=== PATIENT | male | born 2000 | race Caucasian/White ===

== ENCOUNTER 2024-04-20 10:22 | Outpatient (REF) | payer OTHER, SELFPAY ==
--- NOTE | ~2024-04-20 | US_ITS ---
EXAMINATION: US THYROID CLINICAL INFORMATION: Left perithyroid nodule. COMPARISON: None available. TECHNIQUE: Linear transducer grayscale and color Doppler examination with attention to the region of the thyroid. FINDINGS: SIZE: Measurements of the thyroid lobes and nodules are given in sagittal, anteroposterior and transverse dimensions respectively. Right Thyroid Lobe: 5.0 x 1.1 x 1.6 cm, volume 4.6 mL. Parenchyma: The gland echotexture is homogeneous. Thyroid vascularity is normal. Left Thyroid Lobe: 3.6 x 1.0 x 0.8 cm, volume 1.7 mL. Parenchyma: The gland echotexture is homogeneous. Thyroid vascularity is normal. Isthmus: 0.17 cm in maximum AP dimension. No focal thyroid nodule is seen. ADDITIONAL FINDINGS: The at the area of palpable concern, there is a septated cyst with internal debris measuring 3.9 x 3.2 x 3.5 cm. NODES: No lymphadenopathy is seen in the tissue surrounding the thyroid gland. US/US thyroid IMPRESSION: Septated cyst with internal debris measuring 3.9 cm the area of palpable concern. This may represent a thyroglossal duct cyst or branchial cleft cyst. Recommend clinical correlation for potential signs of infection as an abscess could have a similar sonographic appearance. Recommend CT of the neck with intravenous contrast for further evaluation.
== END 2024-04-20 10:23 | disposition home or self-care (01) ==
LOC: HO.UMASIMG 10:22
PROVIDERS: Visit Provider Physician Assistant Medical
DX: R22.1 Localized swelling, mass and lump, neck (principal)
CPT/HCPCS: 76536